=== PATIENT | male | born 1985 | race Two or more races ===

== ENCOUNTER 2017-07-10 09:31 | Emergency (ER) | payer BC ==
[~2017-07-10] VITALS: Ht 177.8 cm; Wt 104.3 kg
[2017-07-10 09:36] VITALS: Ht 177.8 cm; Wt 104.3 kg
[2017-07-10 10:38] VITALS: BP 148/100
== END 2017-07-10 10:30 | disposition home or self-care (01) ==
LOC: ED 09:31
DX: B34.9 Viral infection, unspecified (principal); E78.5 Hyperlipidemia, unspecified; R73.03 Prediabetes; E78.00 Pure hypercholesterolemia, unspecified; I10 Essential (primary) hypertension

== ENCOUNTER 2019-03-06 10:42 | Emergency (ER) | payer BC ==
[~2019-03-06] VITALS: Ht 177.8 cm; Wt 105.7 kg
[2019-03-06 11:02] VITALS: Ht 177.8 cm; Wt 105.7 kg
[2019-03-06 13:18] LABS: CALCIUM 8.8 mg/dL (8.5-10.1); CARBON DIOXIDE 23.2 mmol/L (21-32); CHLORIDE SERUM 95 mmol/L (98-107); GFR1 > 60 mL/min; GLUCOSE SERUM 445 mg/dL (74-106); POTASSIUM SERUM 4.5 mmol/L (3.5-5.1); SODIUM SERUM 133 mmol/L (136-145)
[2019-03-06 13:33] LABS: MAGNESIUM 2.1 mg/dL (1.8-2.4)
[2019-03-06 15:12] VITALS: BP 165/92
== END 2019-03-06 15:12 | disposition home or self-care (01) ==
LOC: ED 10:42
PROVIDERS: Emergency Medicine
DX: E11.65 Type 2 diabetes mellitus with hyperglycemia (principal); I10 Essential (primary) hypertension; E78.00 Pure hypercholesterolemia, unspecified
CPT/HCPCS: 82962; 84439